=== PATIENT | female | born 1965 | race Caucasian/White ===

== ENCOUNTER 2018-03-30 19:30 | Emergency (ER) | payer OTHER ==
[~2018-03-30] VITALS: Ht 154.9 cm; Wt 51.7 kg
[~2018-03-30 19:30] MED LIST: NORCO 5-325 TA1 EACH PO
[2018-03-30] MEDS ORDERED: CALCIUM 600 +1 EAC1 (20:31)
[2018-03-30] MEDS ORDERED: ATORVASTATIN CA40 MG (20:32)
[2018-03-30] MEDS ORDERED: FUROSEMIDE 20 M20 M1 (20:32)
[2018-03-30] MEDS ORDERED: ASPIR 8181 MG (20:32)
[2018-03-30] MEDS ORDERED: ZANTAC 150MG T150 MG (20:32)
[2018-03-30] MEDS ORDERED: CINNAMON500 MG (20:33)
[2018-03-30] MEDS ORDERED: DIGOXIN125 MCG (20:33)
[2018-03-30] MEDS ORDERED: EXCEDRIN CAPLE1 EACH (20:33)
[2018-03-30] MEDS ORDERED: GLUCOPHAGE1000 MG (20:34)
[2018-03-30] MEDS ORDERED: NOVOLOG100 UNIT/1 (20:34)
[2018-03-30] MEDS ORDERED: CYMBALTA60 MG (20:35)
[2018-03-30] MEDS ORDERED: WELLBUTRIN XL300 MG (20:35)
[2018-03-30] MEDS ORDERED: KAPSPARGO SPRIN50 MG (20:35)
[2018-03-30 21:47] VITALS: BP 115/65
== END 2018-03-30 21:48 | disposition home or self-care (01) ==
LOC: M.ERS 19:30
DX: S01.511A Laceration without foreign body of lip, initial encounter (principal); E11.9 Type 2 diabetes mellitus without complications; M81.0 Age-related osteoporosis without current pathological fracture; Z88.0 Allergy status to penicillin; Z95.5 Presence of coronary angioplasty implant and graft; Z79.4 Long term (current) use of insulin; W22.8XXA Striking against or struck by other objects, initial encounter; Y93.89 Activity, other specified; Y92.89 Other specified places as the place of occurrence of the external cause; Y99.8 Other external cause status

== ENCOUNTER → 2019-12-02 | Outpatient (CLI) | payer OTHER ==
[~2019-12-02] MED LIST changes: +ASPIR 8181 MG; +ATORVASTATIN CA40 MG; +CALCIUM 600 +1 EAC1; +CINNAMON500 MG; +CYMBALTA60 MG; +DIGOXIN125 MCG; +EXCEDRIN CAPLE1 EACH; +FUROSEMIDE 20 M20 M1; +GLUCOPHAGE1000 MG; +KAPSPARGO SPRIN50 MG; +NOVOLOG100 UNIT/1; +WELLBUTRIN XL300 MG; +ZANTAC 150MG T150 MG
[2019-12-02 11:26] LABS: CALCIUM 9.3 mg/dL (8.5-10.1); CREATININE 0.8 mg/dL (0.6-1.3); POTASSIUM 4.4 mmol/L (3.5-5.1)
== END ==
LOC: M.LAB 10:59
DX: I25.5 Ischemic cardiomyopathy (principal)